=== PATIENT | male | born 1975 | race Caucasian/White ===

== ENCOUNTER 2016-11-04 18:03 | Emergency (ER) | payer MEDICAID ==
[~2016-11-04] VITALS: Ht 172.7 cm; Wt 75.0 kg
[2016-11-04 19:28] VITALS: BP 125/82
[2016-11-04] MEDS ORDERED: PERTUSS(ACELL),DIPH,TET VAC/PF 0.5 ML VIAL IM ONE (19:45)
[2016-11-04] MEDS ORDERED: IBUPROFEN 600 MG TABLET PO ONE (19:45)
[2016-11-04] MEDS ORDERED: CEPHALEXIN MONOHYDRATE 500 MG CAPSULE PO ONE (19:45)
[2016-11-04] MEDS ORDERED: SULFAMETHOX/TRIMETH DS 800-160 MG/TABLET PO ONE (19:45)
== END 2016-11-04 20:12 | disposition home or self-care (01) ==
LOC: EMS 18:06
DX: S60.424A Blister (nonthermal) of right ring finger, initial encounter (principal); S60.426A Blister (nonthermal) of right little finger, initial encounter; L08.9 Local infection of the skin and subcutaneous tissue, unspecified; W57.XXXA Bitten or stung by nonvenomous insect and other nonvenomous arthropods, initial encounter; Y93.89 Activity, other specified; Y92.89 Other specified places as the place of occurrence of the external cause; Y99.8 Other external cause status
CPT/HCPCS: 10060; 90471; 90715; 99284

== ENCOUNTER 2018-06-07 10:54 | Emergency (ER) | payer MEDICAID ==
[~2018-06-07] VITALS: Ht 172.7 cm; Wt 81.8 kg
[2018-06-07] MEDS ORDERED: IBUPROFEN 800 MG TABLET PO ONE (12:45)
[2018-06-07 13:14] VITALS: BP 128/68
== END 2018-06-07 13:20 | disposition home or self-care (01) ==
LOC: EMS 10:54
DX: J20.9 Acute bronchitis, unspecified (principal); J06.9 Acute upper respiratory infection, unspecified; H66.93 Otitis media, unspecified, bilateral; F17.210 Nicotine dependence, cigarettes, uncomplicated

== ENCOUNTER 2018-08-06 06:59 | Emergency (ER) | payer MEDICAID ==
[~2018-08-06] VITALS: Ht 172.7 cm; Wt 75.0 kg
[2018-08-06] MEDS ORDERED: QUET100T PO (07:29)
[2018-08-06] MEDS ORDERED: GABA-531 PO (07:29)
[2018-08-06 08:36] VITALS: BP 132/86
== END 2018-08-06 09:02 | disposition home or self-care (01) ==
LOC: EMS 07:01
DX: J20.9 Acute bronchitis, unspecified (principal); I10 Essential (primary) hypertension; F41.9 Anxiety disorder, unspecified; F32.9 Major depressive disorder, single episode, unspecified; F17.210 Nicotine dependence, cigarettes, uncomplicated; Z79.899 Other long term (current) drug therapy
CPT/HCPCS: 99406

== ENCOUNTER 2019-08-27 23:57 | Emergency (ER) | payer MEDICAID ==
[~2019-08-27] VITALS: Ht 175.3 cm; Wt 72.7 kg
[~2019-08-27 23:57] MED LIST: GABA-531 PO; QUET100T PO
[2019-08-28 00:29] LABS: GLUCOSE,POINT OF CARE 94 MG/DL (70-110)
[2019-08-28 01:01] LABS: BASOPHILS % (AUTO) 1.1 % (0.0-2.0); EOSINOPHILS % (AUTO) 3.7 % (1.0-6.0); HEMATOCRIT 40.2 % (41-53); HEMOGLOBIN 13.6 g/dL (13.5-17.5); LYMPHOCYTES # (AUTO) 1.9 K/uL (1.0-4.8); LYMPHOCYTES % (AUTO) 30.4 % (22.0-44.0); MEAN CORPUSCULAR HEMOGLOBIN 29.9 pg (26.0-34.0); MEAN CORPUSCULAR HGB CONC 33.8 G/dL (31.0-37.0); MEAN CORPUSCULAR VOLUME 89 fL (80-100); MONOCYTES # (AUTO) 0.6 K/uL (0.1-1.0); MONOCYTES % (AUTO) 8.9 % (2.0-9.0); NEUTROPHILS # (AUTO) 3.6 K/uL (1.8-7.7); NEUTROPHILS % (AUTO) 55.9 % (40.0-70.0); PLATELET COUNT (AUTO) 312 K/uL (150-450); RED BLOOD CELL COUNT(AUTO) 4.53 MIL/uL (4.50-5.90); RED CELL DISTRIBUTION WIDTH 13.3 % (11.5-14.5)
[2019-08-28 01:10] LABS: ANION GAP 3 mmol/L (8-16); CALCIUM, TOTAL 8.8 mg/dL (8.8-10.5); CARBON DIOXIDE 32 mmol/L (22-29); CHLORIDE 105 mmol/L (98-107); CREATININE 0.99 mg/dL (0.60-1.30); GLOMERULAR FILTR. RATE CALC > 60 mL/min (>60); GLUCOSE,RANDOM 103 mg/dL (70-110); SODIUM SERUM 140 mmol/L (136-145); UREA NITROGEN, BLOOD 16 mg/dL (7-18)
[2019-08-28 01:16] LABS: ALANINE AMINOTRANSFERASE 28 U/L (12-78); ALBUMIN 3.6 g/dL (3.4-5.0); ALKALINE PHOSPHATASE 83 U/L (46-116); ASPARTATE AMINOTRANSFERASE 21 U/L (15-37); BILIRUBIN,TOTAL 0.3 mg/dL (0.1-1.0); TOTAL PROTEIN, SERUM 6.7 g/dL (6.4-8.2)
[2019-08-28 04:58] VITALS: BP 136/74
== END 2019-08-28 05:07 | disposition home or self-care (01) ==
LOC: EMS 23:57
DX: T43.621A Poisoning by amphetamines, accidental (unintentional), initial encounter (principal); S00.83XA Contusion of other part of head, initial encounter; S10.93XA Contusion of unspecified part of neck, initial encounter; S00.03XA Contusion of scalp, initial encounter; G62.9 Polyneuropathy, unspecified; G56.32 Lesion of radial nerve, left upper limb; F17.210 Nicotine dependence, cigarettes, uncomplicated; F41.9 Anxiety disorder, unspecified; F32.9 Major depressive disorder, single episode, unspecified; I10 Essential (primary) hypertension; Z59.0 Homelessness; W18.09XA Striking against other object with subsequent fall, initial encounter; Y93.89 Activity, other specified; Y92.89 Other specified places as the place of occurrence of the external cause; Y99.8 Other external cause status
CPT/HCPCS: 29125; 36415; 70450; 73090; 73130; 80053; 82962; 84484; 85025; 93005; 99285; 99406; G0480

== ENCOUNTER 2019-08-28 11:22 | Inpatient (IN) | payer MEDICAID ==
[~2019-08-28] VITALS: Ht 162.6 cm; Wt 70.5 kg
[2019-08-28 12:39] LABS: BASOPHILS % (AUTO) 1.1 % (0.0-2.0); EOSINOPHILS % (AUTO) 3.8 % (1.0-6.0); HEMATOCRIT 39.7 % (41-53); HEMOGLOBIN 13.6 g/dL (13.5-17.5); LYMPHOCYTES # (AUTO) 1.5 K/uL (1.0-4.8); LYMPHOCYTES % (AUTO) 25.3 % (22.0-44.0); MEAN CORPUSCULAR HGB CONC 34.2 G/dL (31.0-37.0); MEAN CORPUSCULAR VOLUME 88 fL (80-100); MONOCYTES # (AUTO) 0.5 K/uL (0.1-1.0); MONOCYTES % (AUTO) 8.6 % (2.0-9.0); NEUTROPHILS # (AUTO) 3.5 K/uL (1.8-7.7); NEUTROPHILS % (AUTO) 61.2 % (40.0-70.0); PLATELET COUNT (AUTO) 308 K/uL (150-450); RED BLOOD CELL COUNT(AUTO) 4.52 MIL/uL (4.50-5.90); RED CELL DISTRIBUTION WIDTH 13.4 % (11.5-14.5)
[2019-08-28 12:57] LABS: ANION GAP 5 mmol/L (8-16); CALCIUM, TOTAL 8.8 mg/dL (8.8-10.5); CARBON DIOXIDE 31 mmol/L (22-29); CHLORIDE 105 mmol/L (98-107); CREATININE 0.95 mg/dL (0.60-1.30); GLOMERULAR FILTR. RATE CALC > 60 mL/min (>60); GLUCOSE,RANDOM 102 mg/dL (70-110); SODIUM SERUM 141 mmol/L (136-145); UREA NITROGEN, BLOOD 16 mg/dL (7-18)
[2019-08-28 13:03] LABS: ALANINE AMINOTRANSFERASE 26 U/L (12-78); ALBUMIN 3.4 g/dL (3.4-5.0); ALKALINE PHOSPHATASE 84 U/L (46-116); ASPARTATE AMINOTRANSFERASE 18 U/L (15-37); BILIRUBIN,TOTAL 0.3 mg/dL (0.1-1.0); TOTAL PROTEIN, SERUM 6.4 g/dL (6.4-8.2)
[2019-08-28 16:31] VITALS: BP 130/76
[2019-08-29] MEDS ORDERED: PNEUMOCOCCAL VACCINE POLYVALENT 0.5 ML VIAL [PPSV23] IM ONE (02:30)
[2019-08-29 06:19] VITALS: BP 135/88
[2019-08-29 08:30] VITALS: BP 134/84
[2019-08-29 09:07] LABS: CHOL/HDL RATIO 3.4 (4.2-7.3); FREE T4 (FREE THYROXINE) 0.8 ng/dL (0.76-1.46); THYROID STIMULATING HORMONE 1.19 uIU/mL (0.36-3.74)
[2019-08-29] MEDS: NICOTINE 21 MG/24 HOUR PATCH TD SCH (10:12)
[2019-08-29] MEDS: LORazepam 2 MG TABLET PO PRN ×2 (10:12→20:15)
[2019-08-29] MEDS: BuPROPion HCL XL 150 MG ER TABLET PO SCH (14:21)
[2019-08-29 16:00] VITALS: BP 136/76
[2019-08-29] MEDS: HALOPERIDOL 5 MG TABLET PO PRN (20:14)
[2019-08-30 05:47] VITALS: BP 132/77
[2019-08-30] MEDS: LORazepam 2 MG TABLET PO PRN ×3 (08:32→20:06)
[2019-08-30] MEDS: BuPROPion HCL XL 150 MG ER TABLET PO SCH (08:32)
[2019-08-30] MEDS: NICOTINE 21 MG/24 HOUR PATCH TD SCH (08:42)
[2019-08-30 09:06] VITALS: BP 132/83
[2019-08-30 16:03] VITALS: BP 132/89
[2019-08-30] MEDS: TraZODone HCL 50 MG TABLET PO SCH (20:06)
[2019-08-30] MEDS: HALOPERIDOL 5 MG TABLET PO PRN (20:06)
[2019-08-31 03:26] VITALS: BP 126/78
[2019-08-31 08:05] VITALS: BP 126/60
[2019-08-31] MEDS: BuPROPion HCL XL 150 MG ER TABLET PO SCH (08:24)
[2019-08-31] MEDS: NICOTINE 21 MG/24 HOUR PATCH TD SCH (08:39)
[2019-08-31] MEDS: LORazepam 2 MG TABLET PO PRN ×2 (10:36→16:44)
[2019-08-31 16:01] VITALS: BP 132/76
[2019-08-31] MEDS: HALOPERIDOL 5 MG TABLET PO PRN (16:44)
[2019-08-31] MEDS: TraZODone HCL 50 MG TABLET PO SCH (20:27)
[2019-08-31] MEDS: ZOLPIDEM TARTRATE 10 MG TABLET PO PRN (20:27)
[2019-09-01 06:50] VITALS: BP 130/81
[2019-09-01 08:07] VITALS: BP 135/67
[2019-09-01] MEDS: BuPROPion HCL XL 150 MG ER TABLET PO SCH (08:24)
[2019-09-01] MEDS: NICOTINE 21 MG/24 HOUR PATCH TD SCH (10:14)
[2019-09-01] MEDS: LORazepam 2 MG TABLET PO PRN ×2 (10:42→18:01)
[2019-09-01 16:03] VITALS: BP 124/65
[2019-09-01] MEDS: HALOPERIDOL 5 MG TABLET PO PRN (18:01)
[2019-09-01] MEDS: ZOLPIDEM TARTRATE 10 MG TABLET PO PRN (21:34)
[2019-09-01] MEDS: TraZODone HCL 50 MG TABLET PO SCH (21:34)
[2019-09-02 06:20] VITALS: BP 121/77
[2019-09-02] MEDS: BuPROPion HCL XL 150 MG ER TABLET PO SCH (08:02)
[2019-09-02] MEDS: NICOTINE 21 MG/24 HOUR PATCH TD SCH (08:02)
[2019-09-02 08:06] VITALS: BP 126/72
[2019-09-02] MEDS: LORazepam 2 MG TABLET PO PRN ×2 (09:00→16:21)
[2019-09-02 16:04] VITALS: BP 108/60
[2019-09-02] MEDS: HALOPERIDOL 5 MG TABLET PO PRN (16:21)
[2019-09-02] MEDS: ZOLPIDEM TARTRATE 10 MG TABLET PO PRN (20:37)
[2019-09-02] MEDS: TraZODone HCL 50 MG TABLET PO SCH (20:37)
[2019-09-03 06:23] VITALS: BP 132/79
[2019-09-03 08:08] VITALS: BP 121/75
[2019-09-03] MEDS: LORazepam 2 MG TABLET PO PRN ×3 (08:22→18:05)
[2019-09-03] MEDS: NICOTINE 21 MG/24 HOUR PATCH TD SCH (08:23)
[2019-09-03] MEDS: BuPROPion HCL XL 150 MG ER TABLET PO SCH (08:23)
[2019-09-03] MEDS: HALOPERIDOL 5 MG TABLET PO PRN ×3 (08:23→18:05)
[2019-09-03 16:00] VITALS: BP 132/72
[2019-09-03] MEDS: ZOLPIDEM TARTRATE 10 MG TABLET PO PRN (20:35)
[2019-09-03] MEDS: TraZODone HCL 50 MG TABLET PO SCH (20:35)
[2019-09-04 03:33] VITALS: BP 115/69
[2019-09-04] MEDS ORDERED: BUPR-93 PO (07:29)
[2019-09-04] MEDS ORDERED: TRAZ-252 PO (07:29)
== END 2019-09-04 08:17 | disposition home or self-care (01) | DRG 750 ==
LOC: EMS 11:24 → B3A 14:34
PROVIDERS: ADMIT Psychiatry & Neurology Psychiatry; ATTEND Psychiatry & Neurology Psychiatry
DX: F25.9 Schizoaffective disorder, unspecified (principal); R45.851 Suicidal ideations; Z91.14 Patient's other noncompliance with medication regimen; F15.90 Other stimulant use, unspecified, uncomplicated; F17.200 Nicotine dependence, unspecified, uncomplicated; G56.32 Lesion of radial nerve, left upper limb; I10 Essential (primary) hypertension; F41.9 Anxiety disorder, unspecified
CPT/HCPCS: 84439; 84443; 90732; G0480

== ENCOUNTER 2020-03-24 20:32 | Inpatient (IN) | payer MEDICAID ==
[~2020-03-24] VITALS: Ht 172.7 cm; Wt 71.8 kg
[~2020-03-24 20:32] MED LIST changes: +BUPR-93 PO; -GABA-531 PO; -QUET100T PO; +TRAZ-252 PO
[2020-03-24 21:16] LABS: BASOPHILS % (AUTO) 0.8 % (0.0-2.0); EOSINOPHILS % (AUTO) 4.8 % (1.0-6.0); HEMATOCRIT 38.4 % (41-53); HEMOGLOBIN 13.4 g/dL (13.5-17.5); LYMPHOCYTES # (AUTO) 1.8 K/uL (1.0-4.8); LYMPHOCYTES % (AUTO) 25.4 % (22.0-44.0); MEAN CORPUSCULAR HEMOGLOBIN 31.5 pg (26.0-34.0); MEAN CORPUSCULAR HGB CONC 34.8 G/dL (31.0-37.0); MEAN CORPUSCULAR VOLUME 90 fL (80-100); MONOCYTES # (AUTO) 0.6 K/uL (0.1-1.0); MONOCYTES % (AUTO) 8.7 % (2.0-9.0); NEUTROPHILS # (AUTO) 4.3 K/uL (1.8-7.7); NEUTROPHILS % (AUTO) 60.3 % (40.0-70.0); PLATELET COUNT (AUTO) 285 K/uL (150-450); RED BLOOD CELL COUNT(AUTO) 4.25 MIL/uL (4.50-5.90); RED CELL DISTRIBUTION WIDTH 13.8 % (11.5-14.5)
[2020-03-24 21:35] LABS: ANION GAP 8 mmol/L (8-16); CALCIUM, TOTAL 8.5 mg/dL (8.8-10.5); CARBON DIOXIDE 29 mmol/L (22-29); CHLORIDE 103 mmol/L (98-107); GLOMERULAR FILTR. RATE CALC > 60 mL/min (>60); GLUCOSE,RANDOM 158 mg/dL (70-110); POTASSIUM 3.6 mmol/L (3.5-5.1); SODIUM SERUM 140 mmol/L (136-145); UREA NITROGEN, BLOOD 18 mg/dL (7-18)
[2020-03-24 21:40] LABS: ALANINE AMINOTRANSFERASE 37 U/L (12-78); ALBUMIN 3.4 g/dL (3.4-5.0); ALKALINE PHOSPHATASE 90 U/L (46-116); ASPARTATE AMINOTRANSFERASE 28 U/L (15-37); BILIRUBIN,TOTAL 0.3 mg/dL (0.1-1.0); TOTAL PROTEIN, SERUM 6.3 g/dL (6.4-8.2)
[2020-03-25 02:28] LABS: COVID AG,FIA SOURCE NASOPHARYNGEAL
[2020-03-25] MEDS ORDERED: ZOLPIDEM TARTRATE 10 MG TABLET PO PRN (03:00)
[2020-03-25 05:10] VITALS: BP 147/92
[2020-03-25] MEDS ORDERED: ONDANSETRON HCL 4 MG TABLET PO PRN (07:30)
[2020-03-25] MEDS ORDERED: PETROLATUM,WHITE 28 GM JELLY TP PRN (07:30)
[2020-03-25] MEDS ORDERED: MAG HYDROX/AL HYDROX/SIMETH ES 30 ML SUSPENSION UDCUP PO PRN (07:30)
[2020-03-25] MEDS ORDERED: MAGNESIUM HYDROXIDE SUSPENSION 30 ML UDCUP PO PRN (07:30)
[2020-03-25] MEDS ORDERED: DOCUSATE SODIUM 100 MG CAPSULE PO PRN (07:30)
[2020-03-25] MEDS ORDERED: ALBUTEROL SULFATE HFA 90 MCG/PUFF 8 GM INHALER IH PRN (07:30)
[2020-03-25] MEDS ORDERED: ACETAMINOPHEN 325 MG TABLET PO PRN (07:30)
[2020-03-25] MEDS ORDERED: LOPERAMIDE HCL 2 MG CAPSULE PO PRN (07:30)
[2020-03-25] MEDS ORDERED: IBUPROFEN 400 MG TABLET PO PRN (07:30)
[2020-03-25] MEDS ORDERED: GuaiFENesin/D-METHORPHAN [SUGAR-FREE] 200-20MG/10 ML SYRUP UDCUP PO PRN (07:30)
[2020-03-25] MEDS ORDERED: CloNIDine HCL 0.1 MG TABLET PO PRN (07:30)
[2020-03-25 08:18] VITALS: BP 127/78
[2020-03-25] MEDS: BuPROPion HCL XL 150 MG ER TABLET PO SCH (12:33)
[2020-03-25] MEDS: NICOTINE 14 MG/24 HOUR PATCH TD PRN (12:33)
[2020-03-25] MEDS: LORazepam 2 MG TABLET PO PRN (12:46)
[2020-03-25 16:24] VITALS: BP 121/82
[2020-03-25] MEDS: TraZODone HCL 150 MG TABLET PO SCH (21:20)
[2020-03-26 01:05] VITALS: BP 123/68
[2020-03-26] MEDS ORDERED: MAGNESIUM HYDROXIDE SUSPENSION 30 ML UDCUP PO PRN (07:00)
[2020-03-26] MEDS ORDERED: NICOTINE 14 MG/24 HOUR PATCH TD PRN (07:00)
[2020-03-26] MEDS ORDERED: MAG HYDROX/AL HYDROX/SIMETH ES 30 ML SUSPENSION UDCUP PO PRN (07:00)
[2020-03-26] MEDS ORDERED: GuaiFENesin/D-METHORPHAN [SUGAR-FREE] 200-20MG/10 ML SYRUP UDCUP PO PRN (07:00)
[2020-03-26] MEDS ORDERED: DOCUSATE SODIUM 100 MG CAPSULE PO PRN (07:00)
[2020-03-26] MEDS ORDERED: CloNIDine HCL 0.1 MG TABLET PO PRN (07:00)
[2020-03-26] MEDS ORDERED: ONDANSETRON HCL 4 MG TABLET PO PRN (07:00)
[2020-03-26] MEDS ORDERED: IBUPROFEN 400 MG TABLET PO PRN (07:00)
[2020-03-26] MEDS ORDERED: LOPERAMIDE HCL 2 MG CAPSULE PO PRN (07:00)
[2020-03-26] MEDS ORDERED: ALBUTEROL SULFATE HFA 90 MCG/PUFF 8 GM INHALER IH PRN (07:00)
[2020-03-26] MEDS ORDERED: ACETAMINOPHEN 325 MG TABLET PO PRN (07:00)
[2020-03-26] MEDS ORDERED: PETROLATUM,WHITE 28 GM JELLY TP PRN (07:00)
[2020-03-26] MEDS: LORazepam 2 MG TABLET PO PRN ×2 (08:02→13:41)
[2020-03-26] MEDS: BuPROPion HCL XL 150 MG ER TABLET PO SCH (08:02)
[2020-03-26 08:04] LABS: CHOL/HDL RATIO 3.2 (4.2-7.3)
[2020-03-26 08:26] VITALS: BP 129/84
[2020-03-26] MEDS: HALOPERIDOL 5 MG TABLET PO PRN (13:41)
[2020-03-26 16:02] VITALS: BP 136/93
[2020-03-26] MEDS: TraZODone HCL 150 MG TABLET PO SCH (20:53)
[2020-03-27 03:16] VITALS: BP 132/90
[2020-03-27] MEDS: BuPROPion HCL XL 150 MG ER TABLET PO SCH (08:07)
[2020-03-27] MEDS: HALOPERIDOL 5 MG TABLET PO PRN ×2 (08:07→17:08)
[2020-03-27] MEDS: LORazepam 2 MG TABLET PO PRN ×2 (08:07→17:08)
[2020-03-27 08:30] VITALS: BP 111/83
[2020-03-27] MEDS: NICOTINE 14 MG/24 HOUR PATCH TD PRN (09:06)
[2020-03-27 16:53] VITALS: BP 114/82
[2020-03-27] MEDS: TraZODone HCL 150 MG TABLET PO SCH (20:36)
[2020-03-28 04:05] VITALS: BP 115/78
[2020-03-28 08:03] VITALS: BP 113/70
[2020-03-28] MEDS: BuPROPion HCL XL 150 MG ER TABLET PO SCH (08:40)
[2020-03-28] MEDS: HALOPERIDOL 5 MG TABLET PO PRN (10:40)
[2020-03-28] MEDS: LORazepam 2 MG TABLET PO PRN ×2 (10:40→17:16)
[2020-03-28] MEDS: BUPRENORPHINE HCL/NALOXONE HCL 8-2 MG SUBLINGUAL TABLET SL SCH ×2 (14:43→17:06)
[2020-03-28] MEDS: TraZODone HCL 150 MG TABLET PO SCH (21:05)
[2020-03-29 08:03] VITALS: BP 108/73
[2020-03-29] MEDS: BuPROPion HCL XL 150 MG ER TABLET PO SCH (08:52)
[2020-03-29] MEDS: BUPRENORPHINE HCL/NALOXONE HCL 8-2 MG SUBLINGUAL TABLET SL SCH ×3 (08:53→17:34)
[2020-03-29] MEDS: NICOTINE 14 MG/24 HOUR PATCH TD PRN (12:53)
[2020-03-29 16:04] VITALS: BP 117/63
[2020-03-29] MEDS: LORazepam 2 MG TABLET PO PRN (17:37)
[2020-03-29] MEDS: TraZODone HCL 150 MG TABLET PO SCH (20:15)
[2020-03-30 05:39] VITALS: BP 106/63
[2020-03-30 05:41] VITALS: BP 112/71
[2020-03-30 08:34] VITALS: BP 117/67
[2020-03-30] MEDS: BUPRENORPHINE HCL/NALOXONE HCL 8-2 MG SUBLINGUAL TABLET SL SCH ×2 (09:00→13:00)
[2020-03-30] MEDS: NICOTINE 14 MG/24 HOUR PATCH TD PRN (10:03)
[2020-03-30] MEDS: BuPROPion HCL XL 150 MG ER TABLET PO SCH (10:10)
== END 2020-03-30 13:30 | disposition home or self-care (01) | DRG 751 ==
LOC: EMS 20:38 → B3A 03-25 02:59
PROVIDERS: ADMIT Psychiatry & Neurology Psychiatry; ATTEND Psychiatry & Neurology Psychiatry
DX: F33.2 Major depressive disorder, recurrent severe without psychotic features (principal); Z59.0 Homelessness; R45.851 Suicidal ideations; F41.0 Panic disorder [episodic paroxysmal anxiety]; Z91.5 Personal history of self-harm; I10 Essential (primary) hypertension; D64.9 Anemia, unspecified; R73.9 Hyperglycemia, unspecified; F17.210 Nicotine dependence, cigarettes, uncomplicated; F10.10 Alcohol abuse, uncomplicated; Y90.9 Presence of alcohol in blood, level not specified; Z03.818 Encounter for observation for suspected exposure to other biological agents ruled out
CPT/HCPCS: 87426; G0480